=== PATIENT | male | born 1990 | race African-American/Black ===

== ENCOUNTER → 2019-02-10 | Emergency (ER) | payer OTHER ==
[~2019-02-10] MED LIST: TETANUS & DIPHTHERIA TOX,ADULT 0.5 ML VIAL ONE
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
== END ==
LOC: ER 20:57
DX: T54.2X1A Toxic effect of corrosive acids and acid-like substances, accidental (unintentional), initial encounter (principal); T22.611A Corrosion of second degree of right forearm, initial encounter; T32.0 Corrosions involving less than 10% of body surface; T79.9XXA Unspecified early complication of trauma, initial encounter; Y93.89 Activity, other specified; Y92.89 Other specified places as the place of occurrence of the external cause; Y99.0 Civilian activity done for income or pay; Z23 Encounter for immunization
CPT/HCPCS: 90471; 90714; 99283